=== PATIENT | male | born 1935 | race Caucasian/White ===

== ENCOUNTER 2018-01-09 02:11 | Emergency (ER) | payer MEDICARE | END 2018-01-09 02:49 | disposition home or self-care (01) | LOC: D.ER 02:11 | DX: T14.8XXD Other injury of unspecified body region, subsequent encounter (principal); W57.XXXD Bitten or stung by nonvenomous insect and other nonvenomous arthropods, subsequent encounter; Z00.00 Encounter for general adult medical examination without abnormal findings ==

== ENCOUNTER 2019-01-03 02:24 | Inpatient (IN) | payer MEDICARE ==
[~2019-01-03] VITALS: Ht 167.6 cm; Wt 85.0 kg
[2019-01-03] MEDS ORDERED: FISH OIL 1,0001 CA1 PO (02:28)
[2019-01-03] MEDS ORDERED: METAMUCIL SUGAR1 PKT PO (02:28)
[2019-01-03] MEDS ORDERED: CALCIUM 500 +1 EAC3 PO (02:28)
[2019-01-03] MEDS ORDERED: MULTI-DAY VITAM1 TAB PO (02:28)
[2019-01-03] MEDS ORDERED: GLUCOPHAGE500 MG PO (02:28)
[2019-01-03] MEDS ORDERED: NEURONTIN 300300 MG PO (02:29)
[2019-01-03] MEDS ORDERED: MECLIZINE HCL25 MG PO (02:29)
[2019-01-03] MEDS ORDERED: COLCRYS0.6 MG PO (02:29)
[2019-01-03] MEDS ORDERED: GLUCOSAMINE HC500 MG PO (02:30)
[2019-01-03 03:05] LABS: BASOPHILS 0.1 % (0-2); EOSINOPHILS 0.1 % (0-7); HEMATOCRIT 31.9 % (42.0-54.0); HEMOGLOBIN 10.8 g/dL (13.5-17.5); IMMATURE GRANULOCYTES 0.2 % (0-5); LYMPHOCYTES 5.5 % (15-50); MCH 31.4 pg (26.0-34.0); MCHC 33.9 g/dL (31.0-37.0); MCV 92.7 fL (80.0-100.0); MEAN PLATELET VOLUME 10.8 fL (7.4-10.4); MONOCYTES 5.1 % (2-11); PLATELET COUNT 112 10x3/uL (130-400); RBC 3.44 10x6/uL (4.20-6.10); RDW 13.1 % (11.5-14.5); WBC 16.2 10x3/uL (4.8-10.8)
[2019-01-03 03:18] LABS: ALBUMIN 3.7 g/dL (3.4-5.0); ALKALINE PHOSPHATASE 46 U/L (46-116); ALT (SGPT) 39 U/L (10-68); BILIRUBIN - TOTAL 0.52 mg/dL (0.2-1.3); CALC OSMOLALITY 289 mosm/kg (275-300); CALCIUM 9.3 mg/dL (8.5-10.1); CARBON DIOXIDE 24.6 mmol/L (21.0-32.0); CHLORIDE - SERUM 101 mmol/L (98-107); CREATININE - SERUM 1.3 mg/dL (0.6-1.3); GLUCOSE 198 mg/dL (74-106); POTASSIUM - SERUM 3.8 mmol/L (3.5-5.1); SODIUM 138 mmol/L (136-145); UREA NITROGEN 36 mg/dL (7-18); eGFR NON AFRICAN AMERICAN 56 mL/min (90-120)
[2019-01-03 03:24] LABS: PRO BNP 1330 pg/mL (0-450)
[2019-01-03 03:25] LABS: TROPONIN-I < 0.017 ng/mL (0.000-0.060)
[2019-01-03 04:08] LABS: APPEARANCE CLEAR (CLEAR); BILIRUBIN NEGATIVE (NEGATIVE); COLOR YELLOW (YELLOW); GLUCOSE NEGATIVE (NEGATIVE); KETONE SMALL mg/dL (NEGATIVE); NITRITE NEGATIVE (NEGATIVE); PROTEIN NEGATIVE (NEGATIVE); SPECIFIC GRAVITY 1.015 (1.005-1.020); UROBILINOGEN NORMAL (NORMAL); WHITE CELLS - URINE NSEEN /hpf (0-5)
[2019-01-03 05:47] VITALS: Ht 167.6 cm; Wt 85.0 kg
--- NOTE | 2019-01-03 07:15 | NUR ---
SLEEPING. LUNGS DIMINISHED BILATERALLY. HEART SOUNDS S1 AND S2 HEARD IN ALL SINGER. BOWEL SOUNDS ACTIVE X 4. SKIN INTACT WITHOUT REDNESS. DENIES NEEDS. BED LOW. CALL FOUNTAIN AND PERSONAL ITEMS IN REACH. WILL CONTINUE TO MONITOR.
--- NOTE | 2019-01-03 07:48 | NUR ---
RESTING IN BED. ALERT AND ORIENTED X 3. LUNGS CLEAR BILATERALLY IN ALL SINGER. HEART SOUNDS S1 AND S2 HEARD IN ALL SINGER. BOWEL SOUNDS ACTIVE X 4. LAP SITES X 4 WITHOUT REDNESS OR S/SX INFECTION. LEFT BR[place]FORD DRAIN DRAINING DARK SEROUS FLUID. IV TO RFA PATENT WTITHOUT REDNESS. DENIES PAIN. DENIES NEEDS. BED LOW. CALL FOUNTAIN AND PERSONAL ITEMS IN REACH. WILL CONTINUE TO MONITOR.
[2019-01-03 09:13] VITALS: BP 120/42
--- NOTE | 2019-01-03 09:59 | NUR ---
RESTING IN BED. DENIES PAIN. DENIES NEEDS.
--- NOTE | 2019-01-03 12:06 | NUR ---
FLU SWAB COLLECTED
--- NOTE | 2019-01-03 12:24 | NUR ---
EDUCATION PROVIDED ON NEED FOR URINE AND STOOL SAMPLE. URINAL PLACED AT BEDSIDE. HAT PLACED IN TOILET. VERBALIZED UNDERSTANDING. EDUCATION PROVIDED ON INCENTIVE SPIROMETER. PATIENT DEMONSTRATED UNDERSTANDING THROUGH TEACH BACK. EDUCATION PROVIDED ON SCDS. SCDS IN PLACE.
[2019-01-03 12:59] LABS: % SATURATION 6 % (15-55); IRON 16 ug/dl (35-150); TOTAL IRON BIND CAPACITY 254 ug/dl (260-445); UNSAT IRON BIND CAPACITY 238 ug/dl (150-375)
[2019-01-03 14:18] VITALS: BP 115/43
--- NOTE | 2019-01-03 15:24 | NUR ---
RESTING IN BED. DENIES PAIN. DENIES NEEDS. AT BEDSIDE.
--- NOTE | 2019-01-03 16:28 | NUR ---
BLOOD SUGAR 181. REFUSES INSULIN. AGRICULTURAL SYSTEMS SPECIALIST NOTIFIED THAT PATIENT DOES NOT WANT INSULIN. STATES TAKES METFORMIN AT HOME. NO NEW ORDERS GIVEN AT THIS TIME
--- NOTE | 2019-01-03 16:51 | NUR ---
AMBULATED IN EUBANKS 150 FEET STANDBY ASSIST. DENIES PAIN. DENIES NEEDS.
[2019-01-03 17:28] VITALS: BP 120/52
--- NOTE | 2019-01-03 18:06 | NUR ---
RESTING IN BED. AT BEDSIDE. DENIES PAIN. DENIES NEEDS.
--- NOTE | 2019-01-03 19:00 | NUR ---
REPORT RECEIVED AND CARE OF PT ASSUMED. PT LYING IN HIGH BUCHANAN'S POSITION VISITING WITH SPOUSE. IV IN LEFT HAND PATENT WITH NS INFUSING AT 100 ML / HR. SCD'S IN USE ON BLE. WILL MONITOR FOR NEEDS.
[2019-01-03 19:53] VITALS: BP 126/54
--- NOTE | 2019-01-03 20:13 | NUR ---
HS MEDICATIONS GIVEN TO INCLUDE TYLENOL PO PER REQUEST FOR HEADACHE. WILL CONTINUE TO MONITOR FOR NEEDS.
--- NOTE | 2019-01-03 22:37 | NUR ---
PT SITTING UP IN CHAIR READING AT THIS TIME. NO NEEDS VOICED. WILL CONTINUE TO MONITOR.
[2019-01-04] VITALS: BP 135/54
[2019-01-04 04:00] VITALS: BP 131/65
[2019-01-04 05:36] LABS: BASOPHILS 0.2 % (0-2); EOSINOPHILS 2.3 % (0-7); HEMATOCRIT 27.9 % (42.0-54.0); HEMOGLOBIN 9.6 g/dL (13.5-17.5); IMMATURE GRANULOCYTES 0.1 % (0-5); LYMPHOCYTES 15.4 % (15-50); MCH 31.8 pg (26.0-34.0); MCHC 34.4 g/dL (31.0-37.0); MCV 92.4 fL (80.0-100.0); MEAN PLATELET VOLUME 10.1 fL (7.4-10.4); MONOCYTES 5.8 % (2-11); NEUTROPHILS 76.2 % (40-80); RBC 3.02 10x6/uL (4.20-6.10); RDW 13.2 % (11.5-14.5)
[2019-01-04 05:40] LABS: PLATELET COUNT 80 10x3/uL (130-400); WBC 8.3 10x3/uL (4.8-10.8)
[2019-01-04 05:43] LABS: ANION GAP 12.5 mmol/L (8-16); CARBON DIOXIDE 25.1 mmol/L (21.0-32.0); CREATININE - SERUM 1.1 mg/dL (0.6-1.3); POTASSIUM - SERUM 3.6 mmol/L (3.5-5.1)
[2019-01-04 07:12] LABS: PLATELET ESTIMATE DECREASED; PLATELET MORPHOLOGY NORMAL PLT MORPH
--- NOTE | 2019-01-04 07:32 | NUR ---
SITTING ON EDGE OF BED. ALERT AND ORIENTED X 3. LUNGS DIMINISHED BILATERALLY. HEART SOUNDS S1 AND S2 HEARD IN ALL SINGER. BOWEL SOUNDS ACTIVE X 4. SKIN INTACT WITHOUT REDNESS. SCDS OFF. IV TO LEFT HAND PATENT WITHOUT REDNESS. DENIES PAIN. DENIES NEEDS. BED LOW. CALL FOUNTAIN AND PERSONAL ITEMS IN REACH. WILL CONTINUE TO MONITOR.
[2019-01-04 08:45] VITALS: BP 103/64
--- NOTE | 2019-01-04 09:46 | NUR ---
SITTING ON SIDE OF BED. DENIES PAIN. DENIES NEEDS.
--- NOTE | 2019-01-04 11:14 | NUR ---
BLOOD SUGAR 140
--- NOTE | 2019-01-04 12:43 | NUR ---
SITTING ON SIDE OF BED EATING LUNG. IV TO LEFT HAND LEAKING. STOPPED FLUIDS. PATIENT STATES WOULD LIKE TO EAT BEFORE RESITING. WILL ATTEMPT TO RESITE AFTER LUNCH.
--- NOTE | 2019-01-04 13:28 | NUR ---
IV RESITED TO LEFT THUMB
[2019-01-04] MEDS ORDERED: ZITHROMAX500 MG PO (14:33)
[2019-01-04] MEDS ORDERED: LEVAQUIN750 MG PO (14:34)
--- NOTE | 2019-01-04 15:26 | MORECARE ---
CASE MANAGEMENT DISCHARGE SUMMARY PATIENT: YOSSI JARA UNIT: [id number] ADM DATE: 01/03/19 AGE: 83 : 34 SEX: M ROOM/BED: D.2231 AUTHOR: EDGAR DEE PHYSICIAN: REFERRING PHYSICIAN: LOREN DANIEL MD DATE OF SERVICE: 01/04/19 Discharge Plan Patient Name: YOSSI JARA Facility: [facility]:[place] : 1935 Planned Disposition: Home Anticipated Discharge Date: 01/04/19 Discharge Date: Expected LOS: 1 Initial Reviewer: [email or web address] Initial Review Date: 01/04/2019 Generated: 01/04/19 4:26 pm Patient Name: YOSSI JARA Page [id number] at 1526 All edits/amendments must be made on the electronic document DICTATION DATE: 01/04/19 1526 PEDIATRIC SOCIAL WORKER: AZIZA 01/04/19 1526 RPT#: [id number] DC DATE: STATUS: ADM IN [facility] [address] [place] [address] END OF REPORT
--- NOTE | 2019-01-04 15:33 | MORECARE ---
CASE MANAGEMENT DISCHARGE SUMMARY PATIENT: YOSSI JARA UNIT: [id number] ADM DATE: 01/03/19 AGE: 83 : 34 SEX: M ROOM/BED: D.2231 AUTHOR: LUIZ,DOC PHYSICIAN: REFERRING PHYSICIAN: LOREN DANIEL MD DATE OF SERVICE: 01/04/19 Discharge Plan Patient Name: YOSSI JARA Facility: [facility]:[place] : 1935 Planned Disposition: Home Anticipated Discharge Date: 01/04/19 Discharge Date: Expected LOS: 1 Initial Reviewer: [email or web address] Initial Review Date: 01/04/2019 Generated: 01/04/19 4:32 pm Comments DCP- Discharge Planning Updated by [email or web address]: Jen Sarah on 01/04/19 2:[address] CM MET WITH THE PATIENT AND HIS , TISHA AT THE BEDSIDE. ADVISED HE IS BEING DISCHARGED. EXPLAINED MY ROLE AND RECEIVED CONSENT TO PROCEED WITH ASSESSMENT. PATIENT LIVES W/ HIS IN [place]. THERE ARE NO STEPS TO ENTER HIS HOME. HE IS INDEPENDENT IN HIS CARE. NO HOME HEALTH OR COMMUNITY SERVICES. PCP- DR RUIZ IN [place]. IS ALSO SEEN IN THE [facility] OFFICE. PHARMACY- [facility] MAIL ORDER, [facility] OR [place]. DENIES ANY NEEDS. HIS WILL PROVIDE TRANSPORTATION TO HOME. HE IS HAPPY TO BE DISCHARGED. DCPIA - Discharge Planning Initial Assessment Updated by [email or web address]: Jen Sarha on 01/04/19 3:28 pm * Is the patient Alert and Oriented? Yes * How many steps to enter\exit or inside your home? NONE * P[facility] RUIZ [facility] [place] * Pharmacy [facility] [place] * Preadmission Environment Home with Family * ADLs Independent * Equipment None * Other Equipment DENIES ANY DME * List name and contact numbers for known caregivers / representatives who currently or will assist patient after discharge: TISHA - - [phone] * Verbal permission to speak to the caregivers and representatives has been obtained from the patient. Yes * Community resources currently utilized None * Please name any agencies selected above. N/A * Additional services required to return to the preadmission environment? No * Can the patient safely return to the preadmission environment? Yes * Has this patient been hospitalized within the prior 30 days at any hospital? No Last DP export: 01/04/19 2:26 p Patient Name: YOSSI JARA Page [phone] at 1533 All edits/amendments must be made on the electronic document DICTATION DATE: 01/04/191531 BOAT WASHER: AZIZA 01/04/191531 RPT#: [id number] DC DATE: STATUS: ADM IN [facility] [address] [place] [address] END OF REPORT
--- NOTE | 2019-01-04 16:38 | NUR ---
DISCHARGE EDUCATION PROVIDED BOTH WRITTEN AND VERBAL. VERBALIZED UNDERSTANDING. DENIES FURTHER QUESTIONS. IV REMOVED FROM LEFT THUMB WITH TIP INTACT. NEW INCENTIVE SPIROMETER GIVEN TO PATIENT PER REQUEST. PATIENT DISCHARGED HOME WITH WITH ALL BELONGINGS.
[2019-01-06 11:12] LABS: FOLATE (FOLIC ACID) - SERUM >20.0 ng/mL (>3.0)
== END 2019-01-04 17:18 | disposition home or self-care (01) | DRG 194 ==
LOC: D.ER 02:24 → OBSVTIME 04:40 → D.MS 04:40
PROVIDERS: Family Medicine; ADMIT Internal Medicine Nephrology; ATTEND Internal Medicine Nephrology
DX: J18.9 Pneumonia, unspecified organism (principal); N17.9 Acute kidney failure, unspecified; D64.9 Anemia, unspecified; D11.9 Benign neoplasm of major salivary gland, unspecified; R31.9 Hematuria, unspecified; K21.9 Gastro-esophageal reflux disease without esophagitis

== ENCOUNTER → 2019-03-25 08:58 | Outpatient (CLI) | payer MEDICARE ==
[2019-01-03 05:47] VITALS: BMI 30.2
[~2019-03-25 08:58] MED LIST: CALCIUM 500 +1 EAC3 PO; COLCRYS0.6 MG PO; FISH OIL 1,0001 CA1 PO; GLUCOPHAGE500 MG PO; GLUCOSAMINE HC500 MG PO; LEVAQUIN750 MG PO; MECLIZINE HCL25 MG PO; METAMUCIL SUGAR1 PKT PO; MULTI-DAY VITAM1 TAB PO; NEURONTIN 300300 MG PO; ZITHROMAX500 MG PO
--- NOTE | 2019-03-30 13:55 | EC ---
PATIENT:YOSSI JARA DATE OF SERVICE: 03/25/19 SEX: M MEDICAL RECORD: [id number] DATE OF : 33 LOCATION:[facility] AGE OF PATIENT: 83 ADMISSION DATE: 03/25/19 REFERRING PHYSICIAN: INTERPRETING PHYSICIAN: XUAN LOWE MD ECHOCARDIOGRAM REPORT ECHO CHARGES 4 ECHO COMPLETE Date: 03/25/19 CLINICAL DIAGNOSIS: SSS/MITRAL AND TRICUSPID REGURG ECHOCARDIOGRAPHIC MEASUREMENTS (adult normal given) AC root (d.<3.7cm) 3.7 cm LV Septum d (<1.2 cm> 1.3 cm Valve Excursion 1.7 cm LV Septum (systole) 1.5 cm Left Atria (s.<4.0cm> 4.4 cm LVPW d(<1.2cm) 1.2 cm RV (d.<2.3cm) 4.2 cm LVPW (sytole) 1.4 cm LV diastole(<5.6CM) 5.8 cm MV E-F(>70mm/sec) cm LV systole 3.0 cm LVOT Diameter 2.1 cm MV exc.(>10mm) 1.0 cm Est.ejection fraction (50-75%) % DOPPLER: LVIT cm/sec A 116 cm/sec E 96.0 cm/sec LA cm/sec RVSP 32 mmHg LVOT 99 cm/sec AOP1/2T m/s Asc. Ao 162 cm/sec RVOT 76 cm/sec RA cm/sec PA 118 cm/sec AV Gradient Peak 10.48mmHg AV Mean 6.05 mmHg AV Area 2.2 cm MV Gradient Peak 7.98 mmHg MV Mean 3.36 mmHg MV Area cm COMMENTS: Supervisor Sewer Maintenance: 2 ELY GARCIA [employer] Counselor: 3 Dr. Ram TAPE# PACS Pericardial Effusion N DATE OF SERVICE: 03/25/2019 Adequate 2-D echo, color-flow and spectral Doppler, and M-mode. Borderline LVH. LV internal dimensions are normal. Wall motion is normal. EF is greater than or equal to 55%. Aortic valve sclerosis without stenosis by Doppler interrogation. Left atrium is dilated at 4.4 cm. Mitral valve shows no prolapse. Mild MR. Right-sided chambers are grossly normal. Mild TR. TRANSINT:[id number] Voice Confirmation ID: [id number] DOCUMENT ID: [id number] ECHOCARDIOGRAM REPORT [id number] YOSSI JARA,XUAN Emerson MD at 1355 CC: [id number] DICTATION DATE: 03/26/19 1452 MANAGER CLINICAL RESEARCH: 03/26/19 1605 DEP CLI 03/25/19 [place] [id number] [place] [id number]
== END | disposition home or self-care (01) ==
LOC: D.HCCARDIO 08:58
PROVIDERS: ATTEND Internal Medicine Interventional Cardiology
DX: I45.9 Conduction disorder, unspecified (principal)

== ENCOUNTER 2019-06-04 20:33 | Emergency (ER) | payer MEDICARE ==
[~2019-06-04] VITALS: Ht 167.6 cm; Wt 82.7 kg
[2019-06-04 20:43] VITALS: Ht 167.6 cm; Wt 82.7 kg
[2019-06-04] MEDS ORDERED: NEURONTIN 300300 MG PO (20:46)
[2019-06-04] MEDS ORDERED: CATAPRES0.1 MG PO (21:03)
[2019-06-04 21:30] VITALS: BP 144/76
== END 2019-06-04 21:26 | disposition home or self-care (01) ==
LOC: D.ER 20:33
DX: I10 Essential (primary) hypertension (principal)

== ENCOUNTER → 2020-04-06 10:44 | Outpatient (CLI) | payer MEDICARE ==
[2019-06-04 20:43] VITALS: BMI 29.4
--- NOTE | ~2020-04-06 | EC ---
PATIENT:YOSSI JARA DATE OF SERVICE: 04/06/20 SEX: M MEDICAL RECORD: [id number] DATE OF : 33 LOCATION[facility] AGE OF PATIENT: 84 ADMISSION DATE: 04/06/20 REFERRING PHYSICIAN: INTERPRETING PHYSICIAN: XUAN LOWE MD ECHOCARDIOGRAM REPORT ECHO CHARGES 4 ECHO COMPLETE Date: 04/06/20 CLINICAL DIAGNOSIS: HTN/ MITRAL AND TRICUSPING REGURG ECHOCARDIOGRAPHIC MEASUREMENTS (adult normal given) AC root (d.<3.7cm) 3.8 cm LV Septum d (<1.2 cm> 1.4 cm Valve Excursion 1.9 cm LV Septum (systole) 1.6 cm Left Atria (s.<4.0cm> 4.0 cm LVPW d(<1.2cm) 1.4 cm RV (d.<2.3cm) 4.8 cm LVPW (sytole) 1.8 cm LV diastole(<5.6CM) 5.3 cm MV E-F(>70mm/sec) cm LV systole 3.2 cm LVOT Diameter 2.0 cm MV exc.(>10mm) 1.3 cm Est.ejection fraction (50-75%) % DOPPLER: LVIT cm/sec A 117.0cm/sec E 100.0 cm/sec LA cm/sec RVSP 39 mmHg LVOT 101 cm/sec AOP1/2T 547 m/s Asc. Ao 146 cm/sec RVOT 74 cm/sec RA cm/sec PA 112 cm/sec AV Gradient Peak 8.54 mmHg AV Mean 4.35 mmHg AV Area 1.8 cm MV Gradient Peak 7.27 mmHg MV Mean 2.74 mmHg MV Area cm COMMENTS: Ui Architect: 2 ELY GARCIA Corrugated Box Machine Operator: 3 Dr. Ram TAPE# PACS Pericardial Effusion N DATE OF SERVICE: Adequate 2D, color flow imaging, spectral Doppler and M-mode. LVH is present. LV internal dimension is normal. Wall motion is normal. EF is greater than or equal to 55%. Aortic valve is sclerotic. No evidence of stenosis by Doppler interrogation. There is mild AI by color flow imaging. Left atrium is normal at 4.0 cm. Mitral valve shows no prolapse. Mitral annular calcifications and mild MR. Right-sided chambers are grossly normal. Mild TR. ECHOCARDIOGRAM REPORT [id number] YOSSI JARA TRANSINT:[id number] Voice Confirmation ID: [id number] DOCUMENT ID: [id number] XUAN LOWE MD CC: [id number] DICTATION DATE: 04/07/20 1335 SEED CLEANER OPERATOR: 04/08/20 0000 DEP CLI 04/06/20 [place] [id number] [place] [address]
[~2020-04-06 10:44] MED LIST changes: +CATAPRES0.1 MG PO
== END | disposition home or self-care (01) ==
LOC: D.HCCECHO 10:44
PROVIDERS: ATTEND Internal Medicine Interventional Cardiology
DX: I10 Essential (primary) hypertension (principal)

== ENCOUNTER → 2020-05-19 14:08 | Outpatient (CLI) | payer MEDICARE ==
[2019-06-04 20:43] VITALS: BMI 29.4
== END | disposition home or self-care (01) ==
LOC: D.MRI 13:00
PROVIDERS: ATTEND Family Medicine
DX: M54.16 Radiculopathy, lumbar region (principal)